=== PATIENT | female | born 1930 | race Caucasian/White ===

== ENCOUNTER 2017-04-07 10:30 | Outpatient (RCR) | payer OTHER ==
[~2017-04-07 10:30] MED LIST: CALCIUM600 MG PO; CLARITIN10 M2 PO; FISH OIL + VIT1 EACH PO; MULTIVITAMINS1 EAC1 PO; PAN-C 500 TABL1 EACH PO; SIMVASTATIN40 MG PO
== END 2017-04-09 | disposition home or self-care (01) ==
LOC: PTY 10:30
DX: S92.309D Fracture of unspecified metatarsal bone(s), unspecified foot, subsequent encounter for fracture with routine healing (principal)

== ENCOUNTER 2017-04-15 13:45 | Outpatient (RCR) | payer OTHER | END 2017-05-07 | disposition home or self-care (01) | LOC: PTY 13:45 | DX: S92.309D Fracture of unspecified metatarsal bone(s), unspecified foot, subsequent encounter for fracture with routine healing (principal) ==

== ENCOUNTER 2017-06-02 12:30 | Outpatient (RCR) | payer OTHER | END 2017-06-07 | disposition home or self-care (01) | LOC: PTY 12:30 | DX: S92.309D Fracture of unspecified metatarsal bone(s), unspecified foot, subsequent encounter for fracture with routine healing (principal) ==

== ENCOUNTER 2017-06-09 13:05 | Outpatient (RCR) | payer OTHER | END 2017-07-07 | disposition home or self-care (01) | LOC: PTY 13:05 | DX: S92.309D Fracture of unspecified metatarsal bone(s), unspecified foot, subsequent encounter for fracture with routine healing (principal); X58.XXXD Exposure to other specified factors, subsequent encounter ==